=== PATIENT | female | born 1950 | race Caucasian/White ===

== ENCOUNTER → 2017-05-27 | Outpatient (CLI) | payer OTHER, MEDICARE ==
--- NOTE | 2017-05-27 14:36 | DIAGNOSTIC IMAGING REPORT ---
LEFT HIP UNILATERAL 2 VIEWS HISTORY: 67 years-old Female acute left hip pain, worse with movement. COMPARISON: CT abdomen and pelvis 10/02/2015 TECHNIQUE: Frontal and frog-leg views of the left hip FINDINGS: Moderate left hip osteoarthritis is noted without acute fracture or dislocation. Bone mineralization is within normal limits. Right inguinal surgical clip is again seen. Negative for opaque foreign body. IMPRESSION: 1. No acute fracture or dislocation. 2. 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 The above report was generated using voice recognition software. It may contain grammatical, syntax or spelling errors. Electronically signed by: Les Lopez M.D. 05/27/2017 2:35 PM Dictated Date/Time: 05/27/2017 2:34 PM
--- NOTE | 2017-05-27 14:39 | DIAGNOSTIC IMAGING REPORT ---
L-SPINE MIN 4 VIEWS ROUTINE CLINICAL HISTORY: DEEP JOINT PAIN ON MOVEMENT COMPARISON: CT of the abdomen and pelvis October 02, 2015. FINDINGS: Cholecystectomy clips are incidentally noted. Alignment of the lumbar spine is anatomic. No acute fracture is identified. There is mild multilevel disc space narrowing with moderate anterior osteophytosis within the lower thoracic and upper lumbar spine. No suspicious osseous lesion is present. Sacroiliac joints are intact. IMPRESSION: 1. Mild to moderate multilevel degenerative disc disease and facet arthrosis of the lumbar spine. 2. No acute lumbar spine fracture identified. Electronically signed by: Lazarus Caballero M.D. 05/27/2017 2:38 PM Dictated Date/Time: 05/27/2017 2:34 PM
== END | disposition home or self-care (01) ==
LOC: C.RAD1850 14:07
PROVIDERS: ATTEND Family Medicine
DX: M16.12 Unilateral primary osteoarthritis, left hip (principal); M51.36 Other intervertebral disc degeneration, lumbar region

== ENCOUNTER → 2017-08-12 | Outpatient (CLI) | payer OTHER, MEDICARE ==
--- NOTE | 2017-08-12 11:09 | DIAGNOSTIC IMAGING REPORT ---
RIGHT LOWER EXTREMITY VENOUS DOPPLER CLINICAL HISTORY: Right lower leg swelling and calf tenderness to COMPARISON STUDY: No previous studies for comparison. TECHNIQUE: Sonography of the deep venous system of the right lower extremity was performed. Compression and augmentation were evaluated. FINDINGS: The right common femoral, superficial femoral and popliteal veins were compressible. Augmentation was normal. Flow was shown within the deep calf vessels. IMPRESSION: No evidence of deep venous thrombus within the right lower extremity. Electronically signed by: Lazarus Caballero M.D. 08/12/2017 11:08 AM Dictated Date/Time: 08/12/2017 11:08 AM
== END | disposition home or self-care (01) ==
LOC: C.ULTR 10:45
PROVIDERS: ATTEND Family Medicine
DX: M79.89 Other specified soft tissue disorders (principal)